=== PATIENT | female | born 1975 | race African-American/Black ===

== ENCOUNTER 2021-03-02 21:24 | Emergency (ER) | payer MEDICAID ==
[~2021-03-02] VITALS: Ht 165.1 cm; Wt 61.0 kg
[2021-03-02 21:27] VITALS: BP 162/76
== END 2021-03-03 01:31 | disposition left against medical advice (07) ==
LOC: ER 21:43
DX: Z53.21 Procedure and treatment not carried out due to patient leaving prior to being seen by health care provider (principal)
CPT/HCPCS: 81025